=== PATIENT | female | born 1955 | race Caucasian/White ===

== ENCOUNTER 2023-03-07 03:34 | Day surgery (SDC) | payer OTHER ==
[2023-03-06 12:47] VITALS: BMI 28.5
[2023-03-07] MEDS ORDERED: MIDAZOLAM HCL 2 MG/2 ML SINGLE DOSE VIAL ONE (14:21)
[2023-03-07] MEDS ORDERED: LIDOCAINE HCL/PF 2% SDV 5ML VIAL ONE (14:21)
[2023-03-07] MEDS ORDERED: FENTANYL CITRATE/PF 50 MCG/ML VIAL ONE ×6 (14:21→16:28)
[2023-03-07] MEDS ORDERED: PROPOFOL 20 ML ONE (14:21)
[2023-03-07] MEDS ORDERED: ceFAZolin SODIUM 1 GM VIAL ONE (14:37)
[2023-03-07] MEDS ORDERED: ceFAZolin SODIUM 1 GM VIAL IVPB ONE ×2 (14:38→14:40)
[2023-03-07] MEDS ORDERED: IOHEXOL 300 MG/ML INFUS..BTL IV ONE (14:40)
[2023-03-07] MEDS ORDERED: DEXAMETHASONE SOD PHOSPHATE 4 MG/1 ML VIAL ONE (14:44)
[2023-03-07] MEDS ORDERED: ONDANSETRON 4 MG/2 ML VIAL ONE (14:44)
[2023-03-07] MEDS ORDERED: oxyCODONE HCL 5 MG TABLET PO PRN (15:19)
[2023-03-07] MEDS ORDERED: IBUPROFEN 800 MG/8 ML IJ IVPB PRN (15:19)
[2023-03-07] MEDS ORDERED: ONDANSETRON 4 MG/2 ML VIAL IVPUSH PRN (15:19)
[2023-03-07] MEDS ORDERED: LACTATED RINGERS SOLUTION 1,000 ML IV SCH (15:30)
[2023-03-07 16:47] VITALS: RESP 18
[2023-03-07] MEDS ORDERED: oxyCODONE HCL 5 MG TABLET ONE (17:45)
[2023-03-07 18:11] VITALS: BP 108/60; PULSE 88; TEMP 97.5
== END 2023-03-07 18:20 | disposition home or self-care (01) ==
LOC: JASU-SURG 03:34
PROVIDERS: ATTEND Urology
PROC: 0TC68ZZ Extirpation of Matter from Right Ureter, Via Natural or Artificial Opening Endoscopic (ICD-10-PCS; principal; 2023-03-07 14:00)
PROC: 0T768DZ Dilation of Right Ureter with Intraluminal Device, Via Natural or Artificial Opening Endoscopic (ICD-10-PCS; 2023-03-07 14:00)
PROC: BT1DYZZ Fluoroscopy of Right Kidney, Ureter and Bladder using Other Contrast (ICD-10-PCS; 2023-03-07 14:00)
DX: N20.1 Calculus of ureter (principal)
CPT/HCPCS: 76000-TC-FY; 82962; 94760; C1758; C2617